=== PATIENT | male | born 1950 | race Caucasian/White ===

== ENCOUNTER 2022-02-15 10:13 | Emergency (ER) | payer BC, OTHER ==
[~2022-02-15] VITALS: Ht 170.2 cm; Wt 77.1 kg
[2022-02-15 11:26] LABS: Basophils # (auto) 0.1 10 ^3/uL (0-0.2); Basophils % (auto) 0.7 % (0.0-2.0); Eosinophils # (auto) 0.1 10 ^3/uL (0-0.8); Eosinophils % (auto) 0.7 % (0.0-7.0); Hematocrit 41.3 % (41.0-53.0); Lymphocytes # (auto) 1.1 10 ^3/uL (0.4-5.4); Lymphocytes % (auto) 12.2 % (10.0-50.0); Mean Corpuscular Hemoglobin 30.3 pg (28.0-32.0); Mean Corpuscular Hgb Conc. 33.9 g/dL (32.0-36.0); Mean Corpuscular Volume 89.2 fL (80.0-100.0); Monocytes # (auto) 0.8 10 ^3/uL (0-1.3); Monocytes % (auto) 8.8 % (0.0-12.0); Neutrophils # (auto) 6.8 10 ^3/uL (1.6-8.6); Neutrophils % (auto) 77.6 % (37.0-80.0); Red Blood Cells 4.63 10^6/uL (4.5-5.90); Red Cell Distribution Width 13.9 % (11.8-14.3); White Blood Cell 8.7 10^3/uL (4.4-10.8)
[2022-02-15 11:30] LABS: Albumin 3.9 g/dL (3.4-5.0); BUN/Creatinine Ratio 14.1; Calcium 9.1 mg/dL (8.5-10.1); Magnesium 1.8 mg/dL (1.6-2.6)
[2022-02-15 11:32] LABS: Bilirubin, Total 2.2 mg/dL (0.2-1.0); Total Protein 8.2 g/dL (6.4-8.2)
[2022-02-15] MEDS ORDERED: NAP500T PO (13:15)
[2022-02-15] MEDS ORDERED: CYCL-837 PO (13:15)
[2022-02-15 13:40] VITALS: BP 131/92
== END 2022-02-15 13:44 | disposition home or self-care (01) ==
LOC: EDBD 10:13 → ER 10:13
DX: M94.0 Chondrocostal junction syndrome [Tietze] (principal); M79.18 Myalgia, other site; R07.9 Chest pain, unspecified; E11.9 Type 2 diabetes mellitus without complications; I10 Essential (primary) hypertension
CPT/HCPCS: 36415; 71045; 80053; 83735; 84484; 85025; 93005

== ENCOUNTER 2022-10-16 09:24 | Emergency (ER) | payer BC, MEDICAID ==
[~2022-10-16] VITALS: Ht 167.6 cm; Wt 78.2 kg
[~2022-10-16 09:24] MED LIST: CYCL-837 PO; NAP500T PO
[2022-10-16 10:01] VITALS: BP 136/103
[2022-10-16] MEDS ORDERED: METH750T22 PO (10:51)
[2022-10-16] MEDS ORDERED: ACET-1080 PO (10:51)
[2022-10-16] MEDS: ACETAMINOPHEN 500 MG TAB PO ONE (10:58)
== END 2022-10-16 11:03 | disposition home or self-care (01) ==
LOC: ER 09:24
DX: M48.00 Spinal stenosis, site unspecified (principal); M54.16 Radiculopathy, lumbar region; M89.9 Disorder of bone, unspecified; E11.9 Type 2 diabetes mellitus without complications; I10 Essential (primary) hypertension; Z79.899 Other long term (current) drug therapy
CPT/HCPCS: 72131

== ENCOUNTER 2023-03-01 01:57 | Inpatient (IN) | payer BC, MEDICAID ==
[~2023-03-01] VITALS: Ht 172.7 cm; Wt 65.2 kg
[~2023-03-01 01:57] MED LIST changes: +ACET-1080 PO; +METH-1182 PO
[2023-03-01 03:02] LABS: Basophils # (auto) 0 10 ^3/uL (0-0.2); Eosinophils # (auto) 0.1 10 ^3/uL (0-0.8); Eosinophils % (auto) 2.5 % (0.0-7.0); Hemoglobin 9.7 g/dL (13.5-17.5); Lymphocytes # (auto) 0.8 10 ^3/uL (0.4-5.4); Lymphocytes % (auto) 20.1 % (10.0-50.0); Mean Corpuscular Hemoglobin 28.5 pg (28.0-32.0); Mean Corpuscular Hgb Conc. 33.6 g/dL (32.0-36.0); Monocytes # (auto) 0.3 10 ^3/uL (0-1.3); Monocytes % (auto) 7.6 % (0.0-12.0); Neutrophils # (auto) 2.9 10 ^3/uL (1.6-8.6); Neutrophils % (auto) 68.8 % (37.0-80.0); Nucleated Red Blood Cells % 0.1 %; Red Blood Cells 3.42 10^6/uL (4.5-5.90); White Blood Cell 4.2 10^3/uL (4.4-10.8)
[2023-03-01 03:17] LABS: INR 1.02 (0.9-1.15)
[2023-03-01 03:19] LABS: Albumin 3.1 g/dL (3.4-5.0); Calcium 8.9 mg/dL (8.5-10.1); Magnesium 1.9 mg/dL (1.6-2.6); Potassium 4.2 mmol/L (3.5-5.1)
[2023-03-01 03:21] LABS: Bilirubin, Total 0.5 mg/dL (0.2-1.0); Total Protein 6.8 g/dL (6.4-8.2)
[2023-03-01] MEDS ORDERED: ASPirin 325 MG TAB PO ONE (04:30)
[2023-03-01] MEDS ORDERED: HEPARIN SODIUM (PORCINE) 5000 UNITS/ML 1ML VIAL IV ONE (05:45)
[2023-03-01] MEDS: HEPARIN DRIP/D5W 100UNITS/ML 250 ML IV SCH ×2 (06:31→13:08)
[2023-03-01] MEDS ORDERED: HYDROcodone-ACET 5/325MG TAB PO PRN (09:30)
[2023-03-01] MEDS ORDERED: MORPHINE SULFATE INJ 2 MG/ml SYRG IV PRN (09:30)
[2023-03-01] MEDS ORDERED: NITROGLYCERIN 0.4 MG SL TAB SL PRN (09:30)
[2023-03-01] MEDS ORDERED: ACETAMINOPHEN 325 MG TAB PO PRN (09:30)
[2023-03-01 12:54] LABS: INR 1.06 (0.9-1.15); Partial Thromboplastin Time 48.7 sec (24.6-33.4)
[2023-03-01] MEDS ORDERED: HEPARIN DRIP/D5W 100UNITS/ML 250 ML IV SCH ×2 (13:15→13:30)
[2023-03-01 20:31] LABS: INR 1.07 (0.9-1.15); Partial Thromboplastin Time 57.9 sec (24.6-33.4)
[2023-03-01 22:57] VITALS: BP 160/80
[2023-03-02] VITALS (10 sets, daily range): BP systolic 147–161; BP diastolic 72–100
[2023-03-02] MEDS ORDERED: NEBI5TAB2 PO (01:57)
[2023-03-02] MEDS ORDERED: ASPI1TAB20 PO (01:57)
[2023-03-02] MEDS ORDERED: METF500S3 PO (01:57)
[2023-03-02] MEDS ORDERED: TICA90TA PO (01:57)
[2023-03-02 10:10] LABS: Basophils # (auto) 0.1 10 ^3/uL (0-0.2); Basophils % (auto) 0.7 % (0.0-2.0); Eosinophils # (auto) 0.1 10 ^3/uL (0-0.8); Hemoglobin 16.2 g/dL (13.5-17.5); Lymphocytes # (auto) 1.2 10 ^3/uL (0.4-5.4); Neutrophils # (auto) 9.6 10 ^3/uL (1.6-8.6)
[2023-03-02 10:11] LABS: Eosinophils % (auto) 0.7 % (0.0-7.0); Hematocrit 47.6 % (41.0-53.0); Lymphocytes % (auto) 9.9 % (10.0-50.0); Mean Corpuscular Hemoglobin 34.4 pg (28.0-32.0); Mean Corpuscular Hgb Conc. 34.1 g/dL (32.0-36.0); Mean Corpuscular Volume 101.1 fL (80.0-100.0); Monocytes % (auto) 8.4 % (0.0-12.0); Neutrophils % (auto) 80.3 % (37.0-80.0); Nucleated Red Blood Cells % 0.2 %; Red Blood Cells 4.71 10^6/uL (4.5-5.90); Red Cell Distribution Width 13.3 % (11.8-14.3); White Blood Cell 11.9 10^3/uL (4.4-10.8)
[2023-03-02] MEDS ORDERED: VERAPAMIL 2.5MG/ML INJ 2ML VIAL IV ONE (10:27)
[2023-03-02] MEDS ORDERED: ANGIOMAX 250 MG VIAL IV ONE (10:27)
[2023-03-02] MEDS ORDERED: MIDAZOLAM HCL 2MG/2ML 2ml VIAL (1mg/ml) ONE (10:28)
[2023-03-02] MEDS ORDERED: SODIUM CHL 0.9% 0 ML ONE (10:28)
[2023-03-02] MEDS ORDERED: fentaNYL CITRATE 100 MCG/2 ML VL ONE (10:28)
[2023-03-02] MEDS ORDERED: LIDOCAINE 2%HCL (LOCAL ANESTH.) INJ 20ML MDV ONE (10:28)
[2023-03-02 10:30] LABS: INR 0.85 (0.9-1.15); Partial Thromboplastin Time 22.2 sec (24.6-33.4)
[2023-03-02] MEDS ORDERED: IODIXANOL 320MG/ML 100ML BTL IV ONE (10:56)
[2023-03-02] MEDS ORDERED: HEPARIN SODIUM (PORCINE) 5000 UNITS/ML 1ML VIAL ONE (11:18)
[2023-03-02] MEDS: NEBIVOLOL 5 MG PO SCH (22:45)
[2023-03-03 05:00] VITALS: BP 133/63
[2023-03-03 08:44] VITALS: BP 142/73
[2023-03-03] MEDS: NEBIVOLOL 5 MG PO SCH (09:30)
[2023-03-03 12:48] VITALS: BP 129/70
[2023-03-03 16:47] VITALS: BP 125/60
[2023-03-03 22:00] VITALS: BP 131/68
[2023-03-04 05:14] VITALS: BP 147/74
[2023-03-04 09:00] VITALS: BP 121/61
[2023-03-04] MEDS: NEBIVOLOL 5 MG PO SCH (10:00)
[2023-03-04] MEDS ORDERED: ATOR20TA PO (12:28)
[2023-03-04 12:35] VITALS: BP 121/61
[2023-03-04 13:00] VITALS: BP 143/81
== END 2023-03-04 16:00 | disposition home health service (06) | DRG 282 ==
LOC: ER 01:57 → EDBD 01:57 → TELE 09:19 → TELE-WESTW 22:33
PROVIDERS: ADMIT Internal Medicine; ATTEND Internal Medicine
PROC: 4A023N7 Measurement of Cardiac Sampling and Pressure, Left Heart, Percutaneous Approach (ICD-10-PCS; principal; 2023-03-02)
PROC: B211YZZ Fluoroscopy of Multiple Coronary Arteries using Other Contrast (ICD-10-PCS; 2023-03-02)
PROC: B215YZZ Fluoroscopy of Left Heart using Other Contrast (ICD-10-PCS; 2023-03-02)
DX: I21.4 Non-ST elevation (NSTEMI) myocardial infarction (principal); I25.10 Atherosclerotic heart disease of native coronary artery without angina pectoris; I10 Essential (primary) hypertension; E11.9 Type 2 diabetes mellitus without complications; D64.9 Anemia, unspecified; E86.0 Dehydration; I24.9 Acute ischemic heart disease, unspecified; E78.5 Hyperlipidemia, unspecified; I25.2 Old myocardial infarction; Z98.61 Coronary angioplasty status; Z79.82 Long term (current) use of aspirin
CPT/HCPCS: 36415; 71045; 76937; 80053; 83735; 83880; 84484; 85025; 85610; 85730; 93005; 93306; 93458; 96365; 96376; 99152; G0378; J2250; Q9967

== ENCOUNTER 2023-07-31 11:37 | Inpatient (IN) | payer BC, MEDICAID ==
[~2023-07-31] VITALS: Ht 167.6 cm; Wt 67.7 kg
[~2023-07-31 11:37] MED LIST changes: -ACET-1080 PO; +ASPI1TAB20 PO; +ATOR20TA PO; +METF500S3 PO; -METH-1182 PO; -NAP500T PO; +NEBI5TAB2 PO
[2023-07-31] MEDS ORDERED: FUROSEMIDE 40 MG/4 ML VIAL IV ONE (12:15)
[2023-07-31 12:29] LABS: Basophils # (auto) 0 10 ^3/uL (0-0.2); Basophils % (auto) 1.2 % (0.0-2.0); Eosinophils # (auto) 0.1 10 ^3/uL (0-0.8); Eosinophils % (auto) 1.4 % (0.0-7.0); Hematocrit 22.5 % (41.0-53.0); Hemoglobin 7.2 g/dL (13.5-17.5); Lymphocytes # (auto) 0.5 10 ^3/uL (0.4-5.4); Lymphocytes % (auto) 12.2 % (10.0-50.0); Mean Corpuscular Hemoglobin 29.7 pg (28.0-32.0); Mean Corpuscular Hgb Conc. 31.8 g/dL (32.0-36.0); Mean Corpuscular Volume 93.6 fL (80.0-100.0); Monocytes # (auto) 0.4 10 ^3/uL (0-1.3); Monocytes % (auto) 9.1 % (0.0-12.0); Neutrophils % (auto) 76.1 % (37.0-80.0); Red Blood Cells 2.41 10^6/uL (4.5-5.90); White Blood Cell 3.9 10^3/uL (4.4-10.8)
[2023-07-31 12:40] LABS: Alanine Aminotransferase 23 U/L (7-40); Alkaline Phosphatase 367 U/L (46-116); Anion Gap 6 (5-15); Aspartate Aminotransferase 16 U/L (13-40); BUN/Creatinine Ratio 28.2 (10.0-20.0); Blood Urea Nitrogen 22 mg/dL (9-23); Calcium 8.4 mg/dL (8.7-10.4); Carbon Dioxide 28 mmol/L (20-30); Chloride 104 mmol/L (98-107); Glucose 199 mg/dL (74-106); Magnesium 1.6 mg/dL (1.6-2.6); Potassium 3.8 mmol/L (3.5-5.1); Sodium 138 mmol/L (136-145)
[2023-07-31 12:41] LABS: Albumin 3.8 g/dL (3.2-4.8); Bilirubin, Total 1.5 mg/dL (0.2-1.0); Total Protein 6.1 g/dL (5.7-8.2)
[2023-07-31 13:50] VITALS: PULSE 101; RESP 20; O2SAT 96
[2023-07-31 14:58] LABS: Urine Bacteria NONE SEEN /hpf (None Seen); Urine Blood Negative /uL (Negative); Urine Clarity Clear (Clear); Urine Color Colorless (Yellow); Urine Mucus FEW (None Seen); Urine Protein, UAD Negative (Negative); Urine Urobilinogen Normal (Negative); Urine WBC <1 /hpf (0 - 3); Urine pH 5.5 (5.0-8.0)
[2023-07-31] MEDS ORDERED: ONDANSETRON HCL 4 MG/2 ML VIAL IV PRN (15:30)
[2023-07-31] MEDS ORDERED: NITROGLYCERIN 0.4 MG SL TAB SL PRN (15:30)
[2023-07-31] MEDS ORDERED: ACETAMINOPHEN 325 MG TAB PO PRN (15:30)
[2023-07-31] MEDS ORDERED: MORPHINE SULFATE INJ 2 MG/ml SYRG IV PRN ×2 (15:30)
[2023-07-31] MEDS: PIPERACILLIN-TAZOB 3.375GM 100 ML IV SCH (18:36)
[2023-07-31 19:45] VITALS: PULSE 91; RESP 23; O2SAT 95
[2023-08-01] VITALS (11 sets, daily range): BP systolic 130–139; BP diastolic 65–76; PULSE 78–98; RESP 16–19; TEMP 97.6–98.7; O2SAT 91–100
[2023-08-01] MEDS: PIPERACILLIN-TAZOB 3.375GM 100 ML IV SCH ×3 (02:47→19:15)
[2023-08-01] MEDS: HYDROcodone-ACET 5/325MG TAB PO PRN ×3 (04:08→18:03)
[2023-08-01 06:13] LABS: Alanine Aminotransferase 17 U/L (7-40); Alkaline Phosphatase 312 U/L (46-116); Anion Gap 7 (5-15); BUN/Creatinine Ratio 21.5 (10.0-20.0); Blood Urea Nitrogen 17 mg/dL (9-23); Calcium 8.5 mg/dL (8.7-10.4); Carbon Dioxide 28 mmol/L (20-30); Chloride 101 mmol/L (98-107); Glucose 128 mg/dL (74-106); Potassium 3.6 mmol/L (3.5-5.1); Sodium 136 mmol/L (136-145)
[2023-08-01 06:14] LABS: Albumin 3.7 g/dL (3.2-4.8); Aspartate Aminotransferase 13 U/L (13-40); Total Protein 6.1 g/dL (5.7-8.2)
[2023-08-01 06:19] LABS: Lymphocytes # (auto) 0.5 10 ^3/uL (0.4-5.4); Mean Corpuscular Hgb Conc. 32.3 g/dL (32.0-36.0); Mean Corpuscular Volume 92.6 fL (80.0-100.0); Monocytes # (auto) 0.3 10 ^3/uL (0-1.3); Neutrophils # (auto) 2.6 10 ^3/uL (1.6-8.6)
[2023-08-01 06:24] LABS: Basophils # (auto) 0.1 10 ^3/uL (0-0.2); Basophils % (auto) 2.1 % (0.0-2.0); Eosinophils # (auto) 0 10 ^3/uL (0-0.8); Eosinophils % (auto) 1.4 % (0.0-7.0); Lymphocytes % (auto) 14.5 % (10.0-50.0); Mean Corpuscular Hemoglobin 29.9 pg (28.0-32.0); Monocytes % (auto) 8.8 % (0.0-12.0); Neutrophils % (auto) 73.2 % (37.0-80.0); Nucleated Red Blood Cells % 2.5 %; Red Blood Cells 2.27 10^6/uL (4.5-5.90); Red Cell Distribution Width 21.2 % (11.8-14.3); White Blood Cell 3.5 10^3/uL (4.4-10.8)
[2023-08-01 07:16] LABS: Hemoglobin 6.8 g/dL (13.5-17.5)
[2023-08-01] MEDS ORDERED: NEBI5TAB13 PO (07:42)
[2023-08-01] MEDS ORDERED: INSREG3 (07:42)
[2023-08-01] MEDS ORDERED: LISI-275 PO (07:42)
[2023-08-01] MEDS ORDERED: LACT10SO3 PO (07:42)
[2023-08-01] MEDS ORDERED: METF-1145 PO (07:42)
[2023-08-01] MEDS ORDERED: PANT40T PO (07:42)
[2023-08-01] MEDS ORDERED: TRAM50TA2 PO (07:42)
[2023-08-01] MEDS ORDERED: SUCR1TAB PO (07:42)
[2023-08-01] MEDS ORDERED: PANT40PA (07:42)
[2023-08-01] MEDS ORDERED: MIRT1TAB38 PO (07:42)
[2023-08-01] MEDS ORDERED: CLOP75TA70 PO (07:42)
[2023-08-01] MEDS ORDERED: POTA-264 (07:42)
[2023-08-01] MEDS ORDERED: ATOR40TA52 PO (07:42)
[2023-08-01] MEDS ORDERED: MET25T PO (07:42)
[2023-08-01] MEDS ORDERED: FUR20T PO (07:42)
[2023-08-01] MEDS: ENOXAPARIN SOD 40 MG/0.4 ML SYRINGE SC SCH (11:06)
[2023-08-01] MEDS: FUROSEMIDE 40 MG/4 ML VIAL IV SCH (11:06)
[2023-08-02] VITALS (8 sets, daily range): BP systolic 119–144; BP diastolic 64–77; PULSE 76–92; RESP 14–18; TEMP 97.4–99.2; O2SAT 90–99
[2023-08-02] MEDS: HYDROcodone-ACET 5/325MG TAB PO PRN ×3 (01:40→23:02)
[2023-08-02] MEDS: PIPERACILLIN-TAZOB 3.375GM 100 ML IV SCH ×3 (01:48→17:37)
[2023-08-02 07:16] LABS: Chloride 100 mmol/L (98-107); Potassium 3.7 mmol/L (3.5-5.1); Sodium 139 mmol/L (136-145)
[2023-08-02 07:17] LABS: Anion Gap 8 (5-15); Calcium 8.2 mg/dL (8.7-10.4); Carbon Dioxide 31 mmol/L (20-30)
[2023-08-02 07:22] LABS: Blood Urea Nitrogen 20 mg/dL (9-23); Glucose 96 mg/dL (74-106)
[2023-08-02 07:33] LABS: Magnesium 1.5 mg/dL (1.6-2.6)
[2023-08-02 07:39] LABS: Red Cell Distribution Width 28.7 % (11.8-14.3)
[2023-08-02 07:41] LABS: Hematocrit 23.6 % (41.0-53.0); Hemoglobin 7.7 g/dL (13.5-17.5); Mean Corpuscular Hemoglobin 27.7 pg (28.0-32.0); Mean Corpuscular Hgb Conc. 32.8 g/dL (32.0-36.0); Mean Corpuscular Volume 84.5 fL (80.0-100.0)
[2023-08-02 08:03] LABS: Basophils % (manual) 0 (0.0-2.0); Blast Cells 0; Metamyelocytes % 0; Myelocytes % 0; Promyelocytes % 0; Reactive Lymphocytes 0
[2023-08-02 09:19] LABS: Band Neutrophils % (manual) 4; Eosinophils % (manual) 2 (0-7); Lymphocytes % (manual) 19 (10.0-50.0); Monocytes % (manual) 11 (0-12)
[2023-08-02 09:20] LABS: Anisocytosis Moderate; Ovalocytes FEW; Platelet Estimate Adequate; Polychromasia Slight; Tear Drop Cells FEW
[2023-08-02] MEDS: ENOXAPARIN SOD 40 MG/0.4 ML SYRINGE SC SCH (09:54)
[2023-08-02] MEDS: FUROSEMIDE 40 MG/4 ML VIAL IV SCH (09:54)
[2023-08-03] MEDS: PIPERACILLIN-TAZOB 3.375GM 100 ML IV SCH ×3 (02:10→17:36)
[2023-08-03 05:00] VITALS: BP 141/71; PULSE 89; RESP 16; TEMP 98.7; O2SAT 98
[2023-08-03] MEDS: HYDROcodone-ACET 5/325MG TAB PO PRN ×3 (05:07→20:35)
[2023-08-03 08:00] VITALS: PULSE 91; RESP 17
[2023-08-03 09:00] VITALS: BP 144/73; PULSE 92; RESP 18; TEMP 98; O2SAT 94
[2023-08-03] MEDS: ENOXAPARIN SOD 40 MG/0.4 ML SYRINGE SC SCH (10:31)
[2023-08-03 13:00] VITALS: BP 127/71; PULSE 87; RESP 17; TEMP 98.6; O2SAT 97
[2023-08-03] MEDS: FUROSEMIDE 40 MG/4 ML VIAL IV SCH (13:06)
[2023-08-03 17:00] VITALS: BP 122/88; PULSE 88; RESP 16; TEMP 98.3; O2SAT 95
[2023-08-03 20:00] VITALS: PULSE 97; RESP 18
[2023-08-04] MEDS: PIPERACILLIN-TAZOB 3.375GM 100 ML IV SCH ×3 (01:36→17:20)
[2023-08-04] MEDS: HYDROcodone-ACET 5/325MG TAB PO PRN ×3 (04:46→20:54)
[2023-08-04 05:00] VITALS: BP 132/87; PULSE 88; RESP 18; TEMP 97.7; O2SAT 98
[2023-08-04 08:00] VITALS: BP 154/82; PULSE 87; PULSE 91; PULSE 96; RESP 20; TEMP 98.8; O2SAT 93
[2023-08-04] MEDS: ENOXAPARIN SOD 40 MG/0.4 ML SYRINGE SC SCH (09:40)
[2023-08-04] MEDS: FUROSEMIDE 40 MG/4 ML VIAL IV SCH (09:40)
[2023-08-04 12:00] VITALS: BP 142/78; PULSE 90; RESP 20; TEMP 98.8; O2SAT 96
[2023-08-04 16:00] VITALS: BP 145/76; PULSE 86; RESP 20; TEMP 98.7; O2SAT 98
[2023-08-04 20:00] VITALS: PULSE 95; RESP 18
[2023-08-04 22:00] VITALS: BP 132/70; PULSE 94; RESP 18; TEMP 97.5; O2SAT 95
[2023-08-05] MEDS: PIPERACILLIN-TAZOB 3.375GM 100 ML IV SCH ×3 (01:47→18:00)
[2023-08-05 05:00] VITALS: BP 135/76; PULSE 84; RESP 19; TEMP 98.7; O2SAT 95
[2023-08-05] MEDS: HYDROcodone-ACET 5/325MG TAB PO PRN (05:08)
[2023-08-05 08:00] VITALS: BP 128/74; PULSE 88; PULSE 91; RESP 20; TEMP 98.6; O2SAT 95
[2023-08-05 08:32] VITALS: BP 128/74; PULSE 91; RESP 20; TEMP 98.6; O2SAT 95
[2023-08-05] MEDS: ENOXAPARIN SOD 40 MG/0.4 ML SYRINGE SC SCH (09:14)
[2023-08-05] MEDS: FUROSEMIDE 40 MG/4 ML VIAL IV SCH (09:14)
[2023-08-05 13:04] VITALS: BP 134/74; PULSE 92; RESP 20; TEMP 98.9; O2SAT 94
[2023-08-05 14:25] VITALS: BP 134/74; PULSE 92; RESP 20; TEMP 98.9; O2SAT 95
[2023-08-05 17:15] VITALS: BP 124/71; PULSE 97; RESP 20; TEMP 98.8; O2SAT 94
[2023-08-06 09:35] VITALS: BP 102/58; PULSE 71; RESP 18; TEMP 97.6; O2SAT 98
== END 2023-08-05 19:09 | DRG 177 ==
LOC: ER 11:37 → TELE 15:23 → TELE-WESTW 08-01 08:06
PROVIDERS: ADMIT Internal Medicine; ATTEND Internal Medicine
PROC: 30233N1 Transfusion of Nonautologous Red Blood Cells into Peripheral Vein, Percutaneous Approach (ICD-10-PCS; principal; 2023-08-01)
DX: J15.8 Pneumonia due to other specified bacteria (principal); I50.33 Acute on chronic diastolic (congestive) heart failure; I11.0 Hypertensive heart disease with heart failure; E11.65 Type 2 diabetes mellitus with hyperglycemia; D64.9 Anemia, unspecified; E78.5 Hyperlipidemia, unspecified; M79.89 Other specified soft tissue disorders; I25.10 Atherosclerotic heart disease of native coronary artery without angina pectoris; I34.0 Nonrheumatic mitral (valve) insufficiency; Z95.1 Presence of aortocoronary bypass graft; I25.2 Old myocardial infarction; Z98.61 Coronary angioplasty status; Z79.4 Long term (current) use of insulin; Z80.3 Family history of malignant neoplasm of breast; Z80.8 Family history of malignant neoplasm of other organs or systems; Z83.42 Family history of familial hypercholesterolemia; Z82.3 Family history of stroke; Z82.61 Family history of arthritis; Z82.49 Family history of ischemic heart disease and other diseases of the circulatory system
CPT/HCPCS: 36415; 71045; 80048; 80053; 81001; 83735; 83880; 84484; 85007; 85025; 85027; 86850; 86900; 86901; 86920; 93005; 93306; 96374; 97110; 97116; 97163; 97530; 99291; G0378; J2543

== ENCOUNTER 2023-10-13 11:48 | Inpatient (IN) | payer BC ==
[~2023-10-13] VITALS: Ht 167.6 cm; Wt 90.9 kg
[~2023-10-13 11:48] MED LIST changes: -ATOR20TA PO; +ATOR40TA52 PO; +CLOP75TA70 PO; +MET25T PO; +METF-1145 PO; -METF500S3 PO; +MIRT1TAB38 PO; +NEBI5TAB13 PO; -NEBI5TAB2 PO; +PANT40PA
[2023-10-13] MEDS ORDERED: FUROSEMIDE 100 MG/10ML VIAL IV ONE (12:15)
[2023-10-13 12:55] LABS: Hemoglobin 7.6 g/dL (13.5-17.5); White Blood Cell 3.8 10^3/uL (4.4-10.8)
[2023-10-13 12:56] LABS: Mean Corpuscular Hemoglobin 29.2 pg (28.0-32.0); Mean Corpuscular Hgb Conc. 31.5 g/dL (32.0-36.0); Mean Corpuscular Volume 92.4 fL (80.0-100.0); Red Blood Cells 2.59 10^6/uL (4.5-5.90)
[2023-10-13 12:58] LABS: Red Cell Distribution Width 24.1 % (11.8-14.3)
[2023-10-13 12:59] LABS: Band Neutrophils % (manual) 0; Basophils % (manual) 0 (0.0-2.0); Blast Cells 0; Metamyelocytes % 0; Promyelocytes % 0; Reactive Lymphocytes 0
[2023-10-13 13:10] LABS: Alkaline Phosphatase 360 U/L (46-116); Anion Gap 7 (5-15); Aspartate Aminotransferase 17 U/L (13-40); BUN/Creatinine Ratio 38.2 (10.0-20.0); Blood Urea Nitrogen 34 mg/dL (9-23); Calcium 9.2 mg/dL (8.5-10.1); Carbon Dioxide 26 mmol/L (20-30); Chloride 107 mmol/L (98-107); Glucose 140 mg/dL (74-106); Potassium 4.6 mmol/L (3.5-5.1); Sodium 140 mmol/L (136-145)
[2023-10-13 13:11] LABS: Bilirubin, Total 1.3 mg/dL (0.2-1.0); Total Protein 6.3 g/dL (5.7-8.2)
[2023-10-13 13:13] LABS: Alanine Aminotransferase < 9 U/L (7-40)
[2023-10-13 13:28] LABS: Eosinophils % (manual) 1 (0-7); Lymphocytes % (manual) 17 (10.0-50.0); Monocytes % (manual) 8 (0-12); Myelocytes % 1; Platelet Estimate Adequate
[2023-10-13] MEDS ORDERED: IOHEXOL 350 MG/ML 100ML IJ ONE ×2 (13:32→13:34)
[2023-10-13] MEDS ORDERED: MORPHINE SULFATE INJ 2 MG/ml SYRG IV PRN (20:30)
[2023-10-13] MEDS ORDERED: ACETAMINOPHEN 325 MG TAB PO PRN (20:30)
[2023-10-13] MEDS ORDERED: ONDANSETRON HCL 4 MG/2 ML VIAL IV PRN (20:30)
[2023-10-13] MEDS ORDERED: HYDROcodone-ACET 5/325MG TAB PO PRN (20:30)
[2023-10-13] MEDS ORDERED: hydrALAZINE HCL 10 MG TAB PO PRN (20:30)
[2023-10-13] MEDS ORDERED: NITROGLYCERIN 0.4 MG SL TAB SL PRN (20:30)
[2023-10-13] MEDS ORDERED: DEXTROSE (50%) 50ML SYRG IV PRN (20:45)
[2023-10-13] MEDS: InsuLIN REG 1unit/0.01ml Soln (100units/ml) SC SCH (22:53)
[2023-10-13] MEDS: ACCU-CHEK COMFORT CURVE STRIP VI SCH (22:53)
[2023-10-13] MEDS: FUROSEMIDE 40 MG/4 ML VIAL IV SCH (22:54)
[2023-10-13 23:15] VITALS: BP 127/70; PULSE 89; RESP 16; TEMP 98; O2SAT 94
[2023-10-13 23:35] VITALS: BP 127/70; PULSE 89; RESP 16; TEMP 98; O2SAT 94
[2023-10-13 23:36] LABS: Urine Epithelial Cast None Seen /hpf (<5)
[2023-10-13 23:50] LABS: Urine Bacteria NONE SEEN /hpf (None Seen); Urine Blood Negative /uL (Negative); Urine Clarity Clear (Clear); Urine Color Colorless (Yellow); Urine Protein, UAD TRACE (Negative); Urine Urobilinogen Normal (Negative); Urine WBC <1 /hpf (0 - 3)
[2023-10-14 05:00] VITALS: BP 129/67; PULSE 91; RESP 16; TEMP 98.3; O2SAT 95
[2023-10-14 05:26] LABS: Chloride 103 mmol/L (98-107); Potassium 3.5 mmol/L (3.5-5.1); Sodium 138 mmol/L (136-145)
[2023-10-14 05:27] LABS: Anion Gap 10 (5-15); Carbon Dioxide 25 mmol/L (20-30)
[2023-10-14 05:28] LABS: Calcium 8.7 mg/dL (8.7-10.4)
[2023-10-14 05:32] LABS: Glucose 154 mg/dL (74-106)
[2023-10-14 05:33] LABS: BUN/Creatinine Ratio 29.8 (10.0-20.0); Blood Urea Nitrogen 28 mg/dL (9-23); Magnesium 1.7 mg/dL (1.6-2.6)
[2023-10-14] MEDS: FUROSEMIDE 40 MG/4 ML VIAL IV SCH ×2 (06:15→17:49)
[2023-10-14] MEDS: ACCU-CHEK COMFORT CURVE STRIP VI SCH ×4 (06:15→22:39)
[2023-10-14] MEDS: InsuLIN REG 1unit/0.01ml Soln (100units/ml) SC SCH ×4 (06:24→22:40)
[2023-10-14 08:00] VITALS: BP 124/55; PULSE 77; PULSE 83; RESP 16; TEMP 97.5; O2SAT 95
[2023-10-14] MEDS: PANTOPRAZOLE 40 MG/10 ML VIAL INJ IV SCH (10:07)
[2023-10-14 12:39] VITALS: BP 136/54; PULSE 87; RESP 17; TEMP 97.4; O2SAT 92
[2023-10-14 16:28] VITALS: BP 120/61; PULSE 86; RESP 17; TEMP 98.8; O2SAT 93
[2023-10-14 20:00] VITALS: PULSE 96
[2023-10-14 22:00] VITALS: BP 121/67; PULSE 94; RESP 20; TEMP 98.2; O2SAT 98
[2023-10-15] VITALS (7 sets, daily range): BP systolic 108–137; BP diastolic 52–75; PULSE 83–94; RESP 18–20; TEMP 98–98.4; O2SAT 91–96
[2023-10-15 06:23] LABS: Anion Gap 8 (5-15); Calcium 8.8 mg/dL (8.5-10.1); Carbon Dioxide 30 mmol/L (20-30); Chloride 102 mmol/L (98-107); Potassium 3.2 mmol/L (3.5-5.1); Sodium 140 mmol/L (136-145)
[2023-10-15 06:29] LABS: BUN/Creatinine Ratio 26.7 (10.0-20.0); Blood Urea Nitrogen 24 mg/dL (9-23); Glucose 110 mg/dL (74-106)
[2023-10-15] MEDS: ACCU-CHEK COMFORT CURVE STRIP VI SCH ×4 (06:33→22:11)
[2023-10-15] MEDS: FUROSEMIDE 40 MG/4 ML VIAL IV SCH ×2 (06:33→17:41)
[2023-10-15] MEDS: InsuLIN REG 1unit/0.01ml Soln (100units/ml) SC SCH ×4 (06:37→22:00)
[2023-10-15] MEDS: PANTOPRAZOLE 40 MG/10 ML VIAL INJ IV SCH (09:41)
[2023-10-15] MEDS ORDERED: METF-1145 PO (14:11)
[2023-10-15] MEDS ORDERED: CLOP75TA70 PO (14:11)
[2023-10-15] MEDS ORDERED: ATOR40TA52 PO (14:11)
[2023-10-15] MEDS ORDERED: ASPI1TAB20 PO (14:11)
[2023-10-15] MEDS ORDERED: METO-535 PO (14:12)
[2023-10-15] MEDS ORDERED: FURO1TAB31 PO (14:13)
[2023-10-15] MEDS ORDERED: POTA1TAB61 PO (14:13)
[2023-10-15] MEDS ORDERED: SACU1TAB PO (14:14)
[2023-10-15] MEDS ORDERED: CIPROFLOXACIN 400MG/200ML 200 ML IV SCH (22:00)
[2023-10-15 22:09] LABS: INR 1.19 (0.9-1.15); Prothrombin Time 12.4 sec (9.3-11.8)
[2023-10-15] MEDS: ceFAZolin 1GM/50ML 50 ML IV SCH (22:11)
[2023-10-16] VITALS (8 sets, daily range): BP systolic 125–150; BP diastolic 63–81; PULSE 91–106; RESP 16–20; TEMP 36.6; O2SAT 94–98
[2023-10-16 05:39] LABS: Chloride 102 mmol/L (98-107); Potassium 3.5 mmol/L (3.5-5.1); Sodium 139 mmol/L (136-145)
[2023-10-16 05:40] LABS: Anion Gap 9 (5-15); Carbon Dioxide 28 mmol/L (20-30)
[2023-10-16 05:45] LABS: BUN/Creatinine Ratio 27.8 (10.0-20.0); Blood Urea Nitrogen 25 mg/dL (9-23); Glucose 113 mg/dL (74-106)
[2023-10-16] MEDS: FUROSEMIDE 40 MG/4 ML VIAL IV SCH ×2 (06:28→18:38)
[2023-10-16] MEDS: InsuLIN REG 1unit/0.01ml Soln (100units/ml) SC SCH ×4 (06:28→22:00)
[2023-10-16] MEDS: ceFAZolin 1GM/50ML 50 ML IV SCH ×3 (06:29→22:19)
[2023-10-16] MEDS: ACCU-CHEK COMFORT CURVE STRIP VI SCH ×4 (06:29→22:23)
[2023-10-16] MEDS: PANTOPRAZOLE 40 MG/10 ML VIAL INJ IV SCH (10:00)
[2023-10-16] MEDS ORDERED: LIDOCAINE 2% JELLY 11ml (GLYDO) ONE ×2 (13:10→13:23)
[2023-10-16] MEDS ORDERED: LIDOCAINE W/ EPINEPHRINE 1% 20ML VIAL ONE (13:19)
[2023-10-17] VITALS (7 sets, daily range): BP systolic 122–142; BP diastolic 62–79; PULSE 89–98; RESP 17–20; TEMP 37; O2SAT 92–99
[2023-10-17] MEDS: FUROSEMIDE 40 MG/4 ML VIAL IV SCH ×2 (05:52→17:48)
[2023-10-17] MEDS: ACCU-CHEK COMFORT CURVE STRIP VI SCH ×4 (05:52→22:00)
[2023-10-17] MEDS: InsuLIN REG 1unit/0.01ml Soln (100units/ml) SC SCH ×4 (05:52→22:00)
[2023-10-17] MEDS: ceFAZolin 1GM/50ML 50 ML IV SCH ×3 (05:52→22:46)
[2023-10-17] MEDS: PANTOPRAZOLE 40 MG/10 ML VIAL INJ IV SCH (09:13)
[2023-10-17 15:17] LABS: Hematocrit 25.1 % (41.0-53.0); Hemoglobin 8.1 g/dL (13.5-17.5); Mean Corpuscular Hemoglobin 28.8 pg (28.0-32.0); Mean Corpuscular Hgb Conc. 32.3 g/dL (32.0-36.0); Mean Corpuscular Volume 89.1 fL (80.0-100.0); Red Blood Cells 2.82 10^6/uL (4.5-5.90); White Blood Cell 4.1 10^3/uL (4.4-10.8)
[2023-10-17 15:18] LABS: Red Cell Distribution Width 22.5 % (11.8-14.3)
[2023-10-17 15:20] LABS: Basophils % (manual) 0 (0.0-2.0); Blast Cells 0; Eosinophils % (manual) 0 (0-7); Metamyelocytes % 0; Myelocytes % 0; Promyelocytes % 0; Reactive Lymphocytes 0
[2023-10-17 15:25] LABS: Chloride 99 mmol/L (98-107); Potassium 4.2 mmol/L (3.5-5.1); Sodium 137 mmol/L (136-145)
[2023-10-17 15:26] LABS: Anion Gap 6 (5-15); Calcium 8.8 mg/dL (8.7-10.4); Carbon Dioxide 32 mmol/L (20-30)
[2023-10-17 15:31] LABS: BUN/Creatinine Ratio 27.5 (10.0-20.0); Blood Urea Nitrogen 28 mg/dL (9-23); Glucose 145 mg/dL (74-106)
[2023-10-17 15:32] LABS: Magnesium 1.6 mg/dL (1.6-2.6)
[2023-10-17 16:32] LABS: Anisocytosis Slight; Band Neutrophils % (manual) 8; Lymphocytes % (manual) 14 (10.0-50.0); Monocytes % (manual) 11 (0-12); Platelet Estimate Adequate
[2023-10-18] VITALS (7 sets, daily range): BP systolic 128–142; BP diastolic 63–79; PULSE 92–96; RESP 16–20; TEMP 37.2; O2SAT 94–97
[2023-10-18] MEDS: ceFAZolin 1GM/50ML 50 ML IV SCH ×2 (06:21→14:05)
[2023-10-18] MEDS: InsuLIN REG 1unit/0.01ml Soln (100units/ml) SC SCH ×3 (06:28→17:00)
[2023-10-18] MEDS: ACCU-CHEK COMFORT CURVE STRIP VI SCH ×3 (06:28→17:00)
[2023-10-18] MEDS: FUROSEMIDE 40 MG/4 ML VIAL IV SCH ×2 (08:20→18:00)
[2023-10-18] MEDS: PANTOPRAZOLE 40 MG/10 ML VIAL INJ IV SCH (09:01)
[2023-10-18] MEDS ORDERED: BICA50TA41 PO (16:19)
== END 2023-10-18 18:00 | disposition home or self-care (01) | DRG 722 ==
LOC: ER 11:48 → TELE-WESTW 20:34 → TELE 20:34 → TELE-WESTW 23:20
PROVIDERS: ADMIT Nurse Practitioner Family; ATTEND Nurse Practitioner Family
PROC: 0VB03ZX Excision of Prostate, Percutaneous Approach, Diagnostic (ICD-10-PCS; principal; 2023-10-16 13:16)
DX: C61 Malignant neoplasm of prostate (principal); I50.33 Acute on chronic diastolic (congestive) heart failure; C79.51 Secondary malignant neoplasm of bone; I11.0 Hypertensive heart disease with heart failure; E11.9 Type 2 diabetes mellitus without complications; I34.0 Nonrheumatic mitral (valve) insufficiency; I25.10 Atherosclerotic heart disease of native coronary artery without angina pectoris; D72.819 Decreased white blood cell count, unspecified; K57.30 Diverticulosis of large intestine without perforation or abscess without bleeding; E78.00 Pure hypercholesterolemia, unspecified; D64.9 Anemia, unspecified; Z79.82 Long term (current) use of aspirin; Z79.899 Other long term (current) drug therapy; Z95.1 Presence of aortocoronary bypass graft; Z86.73 Personal history of transient ischemic attack (TIA), and cerebral infarction without residual deficits; Z82.49 Family history of ischemic heart disease and other diseases of the circulatory system; Z85.820 Personal history of malignant melanoma of skin; Z85.3 Personal history of malignant neoplasm of breast; Z87.891 Personal history of nicotine dependence; I25.2 Old myocardial infarction; Z91.199 Patient's noncompliance with other medical treatment and regimen due to unspecified reason; Z82.3 Family history of stroke; Z80.3 Family history of malignant neoplasm of breast; Z79.02 Long term (current) use of antithrombotics/antiplatelets; Z79.84 Long term (current) use of oral hypoglycemic drugs; Z80.8 Family history of malignant neoplasm of other organs or systems
CPT/HCPCS: 36415; 71045; 71275; 74176; 78306; 80048; 80053; 81001; 82962; 83605; 83735; 83880; 84154; 84484; 85007; 85027; 85379; 85610; 93005; 93306; 93970; 97163; C9113; G0378; J1815